=== PATIENT | female | born 1990 | race Caucasian/White ===

== ENCOUNTER 2019-11-30 11:50 | Inpatient (IN) | payer OTHER ==
[2019-11-30] MEDS ORDERED: ELECTROLYTE-148 SOLN 1,000 ML IV SCH ×2 (12:15→12:45)
[2019-11-30 13:04] VITALS: BMI 31.0
[2019-11-30] MEDS ORDERED: CITRIC ACID/SODIUM CITRATE 30 ML UNIT-DOSE CUP PO ONE (13:30)
--- NOTE | 2019-11-30 14:04 | HP ---
Past Medical History - Primary Care Physician PCP:: Sriram Allen - Admission Chief Complaint: 37 week . previous c/s. getational htn , iugr , for repeat c/s History of Present Illness: 29 yo f g 2 p1001 37.4 weeks,with hx of gestational HTN, IUGR, previous c/s, was advised by M for delivery, cx closed , ,firm, vx -3 mi, fhr cat 1. patient had one decel.while on her back which recovered nicely History Source: Patient Limitations to Obtaining History: No Limitations - Past Medical History ...: 2 ...Para: 1 ...Term: 1 ...LMP: 03/02/19 ... Weeks Gestation by Dates: 37.4 ...EDC by Dates: 12/17/19 ...EDC by Sono: 12/17/19 Endocrine: Yes: Hypothyroidism - Past Surgical History Past Surgical History: Yes: Hx Myomectomy: No Hx Transabdominal Cerclage: No - Smoking History Smoking history: Never smoked - Alcohol/Substance Use Hx Alcohol Use: No History of Substance Use: reports: None - Social History Usual Living Arrangement: Yes: With Spouse History of Recent Travel: No Home Medications - Allergies Allergies/Adverse Reactions: Allergies Allergy/AdvReac Type Severity Reaction Status Date / Time No Known Allergies Allergy Verified 11/30/19 12:14 - Home Medications Home Medications: Ambulatory Orders Levothyroxine 175 mcg PO DAILY 11/30/19 Vitamins (Sjr) - 1 tab PO DAILY 11/30/19 Review of Systems - Review of Systems Constitutional: reports: No Symptoms Eyes: reports: No Symptoms HENT: reports: No Symptoms Neck: reports: No Symptoms Cardiovascular: reports: No Symptoms Respiratory: reports: No Symptoms Gastrointestinal: reports: No Symptoms Genitourinary: reports: No Symptoms Breasts: reports: No Symptoms Reported Musculoskeletal: reports: No Symptoms Integumentary: reports: No Symptoms Neurological: reports: No Symptoms Endocrine: reports: No Symptoms Hematology/Lymphatic: reports: No Symptoms Psychiatric: reports: No Symptoms Physical Exam - Maternity Constitutional: Yes: Well Nourished, No Distress, Calm Eyes: Yes: WNL, Conjunctiva Clear, EOM Intact HENT: Yes: WNL, Atraumatic, Normocephalic Neck: Yes: WNL, Supple, Trachea Midline Cardiovascular: Yes: WNL, Regular Rate and Rhythm Breast(s): Yes: WNL - Abdominal Exam/OB Fundal Height: 36 Number of Fetuses: Single Presentation: Vertex Contractions: No Regularity: Irritability Monitor Mode: External Heart Rate Location: [facility] Category: I Accelerations: Non-Uniform Decelerations: None - Vaginal Exam/OB Vaginal Bleediing: No Speculum Exam: No Dilatation (cm): closed Effacement (%): o Amniotic Membrane Status: Intact Presentation: Vertex/Position Station: -3 - Physical Exam Musculoskeletal: Yes: WNL Extremities: Yes: WNL Edema: Yes Edema: LLE: Trace, RLE: Trace Deep Tendon Reflex Grade: Normal +2 Hemorrhage Risk Assessment - Risk Factors Medium Risk Factors: Yes: Prior , uterine surgery,or multiple laparotomies Risk Score: 1 Risk Level: Medium Risk Problem List - Problems (1) with 37 weeks completed gestation Code(s): Z3A.37 - 37 WEEKS GESTATION OF (2) Gestational hypertension Code(s): O13.9 - GESTATIONAL HTN W/O SIGNIFICANT PROTEINURIA, UNSP TRIMESTER Qualifiers: Trimester: third trimester Qualified Code(s): O13.3 - Gestational [ -induced] hypertension without significant proteinuria, third trimester (4) Previous section complicating Code(s): O34.219 - MATERNAL CARE FOR UNSP TYPE SCAR FROM PREVIOUS DEL Assessment/Plan admit for repeat c/s, risks discussed
[2019-11-30] MEDS ORDERED: OXYTOCIN 20 UNITS in 0.9% NS 20 UNIT/1,000 ML INFUS.BAG IV ONE ×2 (14:44→17:16)
[2019-11-30] MEDS ORDERED: morphine SULFATE/PF 0.5 MG/ML (2cc Syringe - QUVA) ONE (14:48)
[2019-11-30] MEDS ORDERED: ePHEDrine SULFATE 50 MG/1 ML AMPULE ONE (14:50)
[2019-11-30] MEDS ORDERED: ONDANSETRON 4 MG/2 ML VIAL ONE (16:09)
[2019-11-30] MEDS ORDERED: diphenhydrAMINE HCL 25 MG CAPSULE (FP) PO PRN (16:19)
[2019-11-30] MEDS ORDERED: BENZOCAINE 20% 57 GM BOTTLE TP PRN (16:19)
[2019-11-30] MEDS ORDERED: BENZOCAINE 28 GM HEMORRHOIDAL OINTMENT PR PRN (16:19)
[2019-11-30] MEDS ORDERED: IBUPROFEN 800 MG/8 ML IJ IVPB PRN (16:19)
[2019-11-30] MEDS ORDERED: METHYLERGONOVINE MALEATE 0.2 MG/1 ML AMP IM PRN (16:19)
[2019-11-30] MEDS ORDERED: oxyCODONE HCL 5 MG TABLET PO PRN ×2 (16:19)
[2019-11-30] MEDS ORDERED: WITCH HAZEL 50% (TUCKS) 40 PAD/JAR PAD TP PRN (16:19)
--- NOTE | 2019-11-30 16:27 | OP ---
Operative Note - Note: Operative Date: 11/30/19 Pre-Operative Diagnosis: 37 weeks, HTN, iugr, previous c/s Operation: repeat LST c/s Findings: live baby girl Surgeon: Sriram Allen Content Administrator: Tad Finn Anesthesiologist/TRAUMA COORDINATOR: Nithin Mathews Anesthesia: Spinal Specimens Removed: placenta Estimated Blood Loss (mls): 500 Drains & Tubes with Location: [facility] Blood Volume Replaced (mls): 0 Operative Report Dictated: Yes
[2019-11-30] MEDS ORDERED: OXYTOCIN 20 UNITS in 0.9% NS 20 UNIT/1,000 ML INFUS.BAG IV SCH (16:30)
[2019-11-30] MEDS ORDERED: DEXTROSE 5%-LACTATED RINGERS 1,000 ML IV SCH (16:30)
[2019-11-30] MEDS: ONDANSETRON 4 MG/2 ML VIAL IVPB PRN ×2 (17:00→23:55)
[2019-11-30] MEDS ORDERED: LABETALOL HCL 5 MG/1 ML (100MG/20 ML VIAL) ONE (17:16)
[2019-11-30] MEDS ORDERED: LABETALOL HCL 5 MG/1 ML (100MG/20 ML VIAL) IVPB ONE (17:40)
[2019-11-30] MEDS ORDERED: LABETALOL HCL 200 MG TABLET (FP) PO PRN (17:41)
[2019-11-30] MEDS ORDERED: LABETALOL HCL 5 MG/1 ML (100MG/20 ML VIAL) IVPUSH ONE (18:28)
[2019-11-30] MEDS ORDERED: LABETALOL HCL 200 MG TABLET (FP) ONE (19:29)
[2019-11-30] MEDS: CEFAZOLIN 1 GM/D5W 1 GM/50 ML BAG IVPB SCH (23:26)
[2019-12-01] MEDS ORDERED: NIFEdipine E.R. 30 MG TABLET PO ONE (00:15)
[2019-12-01] MEDS: CEFAZOLIN 1 GM/D5W 1 GM/50 ML BAG IVPB SCH (06:16)
[2019-12-01] MEDS: LEVOTHYROXINE 100 MCG, LEVOTHYROXINE 75 MCG PO SCH (06:16)
--- NOTE | 2019-12-01 07:02 | PN ---
Progress Note (short form) - Note Progress Note: pod 1 s/p repeat c/s HTN no headache, no blurred vision , no n/v Last Vital Signs Temp Pulse Resp BP Pulse Ox 97.8 F 76 20 133/85 100 12/01/19 05:52 12/01/19 05:52 12/01/19 05:52 12/01/19 05:52 11/30/19 20:30 abdomen soft, no distension, no cva incison dry, clean no calf tenderness lochia mild plan ambulate cbc monitor BP advance diet Problem List - Problems (1) with 37 weeks completed gestation Code(s): Z3A.37 - 37 WEEKS GESTATION OF (2) Gestational hypertension Code(s): O13.9 - GESTATIONAL HTN W/O SIGNIFICANT PROTEINURIA, UNSP TRIMESTER Qualifiers: Trimester: third trimester Qualified Code(s): O13.3 - Gestational [ -induced] hypertension without significant proteinuria, third trimester (4) Previous section complicating Code(s): O34.219 - MATERNAL CARE FOR UNSP TYPE SCAR FROM PREVIOUS DEL
[2019-12-01 08:07] LABS: BASO % 0.1 % (0-2.0); EOS % 0.2 % (0-4.5); HEMATOCRIT 34.3 % (32.4-45.2); HEMOGLOBIN 11.8 GM/dL (10.7-15.3); LYMPH % 7.7 % (8-40); MCH 30.3 pg (25.7-33.7); MCHC 34.4 g/dl (32.0-36.0); MEAN CELL VOLUME 88.3 fl (80-96); MEAN PLT VOLUME 8.1 fl (7.5-11.1); MONO % 4.4 % (3.8-10.2); NEUT % 87.6 % (42.8-82.8); PLATELET COUNT 175 K/MM3 (134-434); RBC 3.89 M/mm3 (3.60-5.2); RDW 12.8 % (11.6-15.6); WHITE BLOOD COUNT 17.6 K/mm3 (4.0-10.0)
[2019-12-01] MEDS: IBUPROFEN 600 MG TABLET (FP) PO PRN ×2 (08:56→21:57)
[2019-12-01] MEDS: ACETAMINOPHEN 325 MG TABLET (FP) PO PRN ×2 (08:56→21:58)
[2019-12-01] MEDS: SIMETHICONE 80 MG TAB.CHEW (FP) PO PRN ×2 (08:56→21:57)
[2019-12-01] MEDS ORDERED: ENOXAPARIN NA (PORCINE) 40 MG/0.4 ML DISP.SYRIN SQ SCH (10:00)
[2019-12-01] MEDS ORDERED: LEVOTHYROXINE 175 MCG PO SCH (10:00)
[2019-12-01] MEDS: ENOXAPARIN NA (PORCINE) 40 MG/0.4 ML DISP.SYRIN SQ SCH (10:24)
[2019-12-01] MEDS ORDERED: BISACODYL 10 MG SUPP.RECT RC PRN (16:19)
[2019-12-02] MEDS: LEVOTHYROXINE 100 MCG, LEVOTHYROXINE 75 MCG PO SCH (06:34)
[2019-12-02] MEDS: ENOXAPARIN NA (PORCINE) 40 MG/0.4 ML DISP.SYRIN SQ SCH (09:51)
[2019-12-02] MEDS: IBUPROFEN 600 MG TABLET (FP) PO PRN (20:45)
[2019-12-02] MEDS: ACETAMINOPHEN 325 MG TABLET (FP) PO PRN (20:45)
[2019-12-02] MEDS ORDERED: SENNOSIDES/DOCUSATE COMBO (SENNA PLUS) TABLET (UD) PO PRN (22:00)
[2019-12-03] MEDS: LEVOTHYROXINE 100 MCG, LEVOTHYROXINE 75 MCG PO SCH (06:18)
[2019-12-03 08:48] LABS: BASO % 0.3 % (0-2.0); EOS % 1.1 % (0-4.5); HEMOGLOBIN 12.1 GM/dL (10.7-15.3); LYMPH % 13.7 % (8-40); MCH 30.6 pg (25.7-33.7); MCHC 34.7 g/dl (32.0-36.0); MEAN CELL VOLUME 88.2 fl (80-96); MEAN PLT VOLUME 7.6 fl (7.5-11.1); MONO % 3.7 % (3.8-10.2); NEUT % 81.2 % (42.8-82.8); PLATELET COUNT 208 K/MM3 (134-434); RBC 3.96 M/mm3 (3.60-5.2); RDW 13.2 % (11.6-15.6); WHITE BLOOD COUNT 13.7 K/mm3 (4.0-10.0)
[2019-12-03] MEDS: ENOXAPARIN NA (PORCINE) 40 MG/0.4 ML DISP.SYRIN SQ SCH (09:23)
[2019-12-03 12:31] VITALS: BP 136/90; PULSE 69; TEMP 97.8
--- NOTE | 2019-12-03 14:43 | PN ---
Post Progress Note - Subjective Subjective: Patient without acute complaints. Reports tolerating oral intake without nausea or vomiting. Ambulating without dizziness. Denies fevers or chills. Pain well controlled with oral pain medication. Pumping/breast feeding without issue. Pt reports left breast lump x 1 day that began with breast engorgement. No pain , no fever, or chills. She is . Passing flatus and had a BM. Post Day: 3 Type of Delivery: Repeat C/S Vital Signs: Vital Signs Temperature 97.8 F 12/03/19 10:00 Pulse Rate 69 12/03/19 10:00 Respiratory Rate 20 12/03/19 10:00 Blood Pressure 136/90 12/03/19 10:00 O2 Sat by Pulse Oximetry (%) 98 12/02/19 20:55 Breast Exam: Yes: Soft, Other (left breast 3x4cm lump at 11:00 abour 6cm from nipple c/w clogged duct, no erythema, no tenderness, no skin changes no LAD.) Uterus: Yes: Fundus Firm, Fundus below umbilicus, Non-tender Incision: Yes: Sutures intact Abdomen/GI: Yes: Abdomen soft, Passing flatus, Tolerating PO Lochia: Yes: Rubra Lochia, amount: Small Extremities: Yes: Calves non-tender, Edema Perineum: Yes: Intact Activity: Ambulating - Labs Labs: CBC WBC 13.7 K/mm3 (4.0-10.0) H 12/03/19 08:28 RBC 3.96 M/mm3 (3.60-5.2) 12/03/19 08:28 Hgb 12.1 GM/dL (10.7-15.3) 12/03/19 08:28 Hct 35.0 % (32.4-45.2) 12/03/19 08:28 MCV 88.2 fl (80-96) 12/03/19 08:28 MCH 30.6 pg (25.7-33.7) 12/03/19 08:28 MCHC 34.7 g/dl (32.0-36.0) 12/03/19 08:28 RDW 13.2 % (11.6-15.6) 12/03/19 08:28 Plt Count 208 K/MM3 (134-434) 12/03/19 08:28 MPV 7.6 fl (7.5-11.1) 12/03/19 08:28 Absolute Neuts (auto) 11.1 K/mm3 (1.5-8.0) H 12/03/19 08:28 Neutrophils % 81.2 % (42.8-82.8) 12/03/19 08:28 Lymphocytes % 13.7 % (8-40) D 12/03/19 08:28 Monocytes % 3.7 % (3.8-10.2) L 12/03/19 08:28 Eosinophils % 1.1 % (0-4.5) D 12/03/19 08:28 Basophils % 0.3 % (0-2.0) 12/03/19 08:28 Nucleated RBC % 0 % (0-0) 12/03/19 08:28 Assessment/Plan 29yo P1 s/p repeat LT C/S, doing well stable, afebrile. The pt is asymptomatic for s/sxs of anemia. BP is improving but has a few mildly elevated blood pressures. Normal Hct and platelets. No s/sx's of PEC. I will d/c the patient with Labetolol prn SBP>140 and/or DBP >90. I discussed this with a patient and she is able to take BP at home. PEC and severe HTN precautions reviewed. care instructions reviewed. Pt was also advised to f/u in-office next week. Continue routine postop care. Ambulation encouraged.
--- NOTE | 2019-12-03 14:51 | DS ---
Physical Exam-VP MARKETING Vital Signs: Vital Signs Temperature 97.8 F 12/03/19 10:00 Pulse Rate 69 12/03/19 10:00 Respiratory Rate 20 12/03/19 10:00 Blood Pressure 136/90 12/03/19 10:00 O2 Sat by Pulse Oximetry (%) 98 12/02/19 20:55 Constitutional: Yes: Well Nourished, No Distress, Calm Eyes: Yes: WNL, Conjunctiva Clear, EOM Intact HENT: Yes: WNL, Atraumatic, Normocephalic Neck: Yes: WNL, Supple, Trachea Midline Cardiovascular: Yes: WNL, Regular Rate and Rhythm Respiratory: Yes: WNL, Regular, CTA Bilaterally Gastrointestinal: Yes: WNL, Normal Bowel Sounds, Soft ...Rectal Exam: Yes: Deferred Renal/: Yes: WNL Internal Exam Deferred: Yes ....Post : Yes: Uterus firm, Uterus non-tender, Slight lochia rubra Breast(s): Yes: Other (left breast 3x4cm lump at 11:00 abour 6cm from nipple c/ w clogged duct, no erythema, no tenderness, no skin changes no LAD.) Musculoskeletal: Yes: WNL Extremities: Yes: WNL Edema: No Integumentary: Yes: WNL Wound/Incision: Yes: Clean/Dry, Well Approximated, Sutures Intact, Steri Strips , Open to air Neurological: Yes: WNL, Alert, Oriented ...Motor Strength: WNL Psychiatric: Yes: WNL, Alert, Oriented Labs: CBC, BMP 12/03/19 08:28 Delivery - Delivery Section: Repeat Type of Anesthesia: Spinal Episiotomy/Laceration: None EBL (cc): 500 Delivery, Single - Stages of Labor Date of Delivery: 11/30/19 Time of Delivery: 15:20 Time Placenta Delivered: 15:22 Placenta: Yes: Expressed - 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 - 1 Minute Total Score: 9 5 Minutes Total Score: 9 - Feeding Plan Initial Plan: Exclusive throughout hospitalization Benefits of Exclusively reinforced: Yes Remarks - Remarks Remarks: BP is improving but has a few mildly elevated blood pressures. Normal Hct and platelets. No s/sx's of PEC. I will d/c the patient with Labetolol prn SBP>140 and/or DBP >90. I discussed this with a patient and she is able to take BP at home. PEC and severe HTN precautions reviewed. care instructions reviewed. Pt was also advised to f/u in-office next week. Discharge Summary Problems reviewed: Yes Reason For Visit: 1. Repeat C/S 2. gestational HTN 3. Left breast lump c/w clogged duct Procedures: Principal: Repeat C/S Hospital Course: 1. BP improving 2. Normal postop recovery Health Concerns: BP control, monitor for signs and symptoms of pre-eclampsia Plan of Treatment: Blood Pressure meds, as needed for systolic BP> 140 and/or diastolic BP > 90. Warm compressed to left breast, massage and pump/breastfeed. F/u in office next week. Goals: Normal BP. Improvement in left breast mass. Condition: Good - Instructions Diet, Activity, Other Instructions: Physical activity Resume your normal everyday activity as tolerated no heavy lifting or exercise until seen by your surgeon. You may walk unlimited todd of and climb stairs. You may resume driving the car when you feel safe and comfortable behind the wheel. No sexual activity as instructed. Wound care If you have a bandage, leave it on, and keep dry for 48-72 hours. After that time discard the outer bandage. If they are tapes on the skin under the out of bandage leave them in place. They will peel off in the next 7 to 10 days. Do Not Peel them off. You may shower the day after surgery. If there are tapes present on the skin, you may shower over them. Diet There are no dietary restrictions. Eat healthy, high-fiber foods. Drink 6 to 8 glasses of liquid each day. This will assist in keeping your bowels are regular. Pain management You may take Tylenol or acetaminophen or Ibuprofen (for example, Motrin, Advil etc.) from my pain prescription medication is ordered should be taken as prescribed for moderate to severe pain. Call MD for any of the following: Severe pain not relieved by medication Fever of 101 or higher Excessive bleeding or drainage on dressing Inability to urinate Referrals: Sriram Allen MD [Staff Physician] - 1 Week Disposition: HOME - Home Medications Comprehensive Discharge Medication List: Ambulatory Orders Levothyroxine 175 mcg PO DAILY 11/30/19 Vitamins (Sjr) - 1 tab PO DAILY 11/30/19 Prescription Drug Monitoring Program (I-STOP) results: I-STOP not reviewed
--- NOTE | 2019-12-07 16:10 | PATH ---
Surgical Pathology Report Patient Name: SARA SCOTT [facility]. Rec. #: [id number] /Age/Gender: 1990 (Age: 29) / F Account: [id number] Location: [facility] OBS/GRAIN WEIGHER Taken: 11/30/2019 Received: 12/01/2019 Reported: 12/07/2019 Physicians: Sriram Allen M.D. Specimen(s) Received PLACENTA Clinical History , repeat scheduled Final Diagnosis PLACENTA: THIRD TRIMESTER PLACENTA. TRIVASCULAR CORD. MEMBRANES WITH NO DIAGNOSTIC ABNORMALITIES. Electronically Signed Omayra Soto M.D. Gross Description The specimen is received fresh labeled placenta and is a 351 gram, 13.5 x 11.5 x 3.0 cm. placenta with attached membranes and umbilical cord. The attached membranes are kapadia, translucent with focal opacities and insert marginally. The umbilical cord measures 9.5 cm. in length and averages 1.1 cm. in diameter. The cord inserts centrally. No true knots or strictures are identified. Cut surface of the umbilical cord reveals 3 vessels. The surface is núñez-blue with minimal fibrin deposition and appropriate caliber vessels. The maternal surface is red-brown with focal defects. Sectioning reveals red-brown, spongy parenchyma. No lesions are identified. Inspecting Supervisor sections are submitted in three cassettes as follows: 1- membrane rolls and umbilical cord; 2-3- full thickness sections of placenta. 12/06/2019 [facility]12/06/2019
== END 2019-12-03 16:00 | disposition home or self-care (01) | DRG 540 ==
LOC: JLDR 11:50 → J3W 20:45
PROVIDERS: ADMIT Obstetrics & Gynecology; ATTEND Obstetrics & Gynecology
PROC: 10D00Z1 Extraction of Products of Conception, Low, Open Approach (ICD-10-PCS; principal; 2019-11-30)
DX: O34.211 Maternal care for low transverse scar from previous cesarean delivery (principal); N85.8 Other specified noninflammatory disorders of uterus; O13.4 Gestational [pregnancy-induced] hypertension without significant proteinuria, complicating childbirth; O36.5930 Maternal care for other known or suspected poor fetal growth, third trimester, not applicable or unspecified; O99.02 Anemia complicating childbirth; O92.29 Other disorders of breast associated with pregnancy and the puerperium; Z3A.37 37 weeks gestation of pregnancy; N63.0 Unspecified lump in unspecified breast; O99.284 Endocrine, nutritional and metabolic diseases complicating childbirth; E03.9 Hypothyroidism, unspecified; Z37.0 Single live birth
CPT/HCPCS: 36415; 36600; 82803; 82962; 85025